=== PATIENT | female | born 1965 | race Hispanic/Latino ===

== ENCOUNTER 2022-04-11 01:46 | Emergency (ER) | payer BC ==
[2022-04-11 02:27] LABS: Urine Blood Negative (Negative); Urine Glucose Negative (Negative); Urine Protein 1+ (Negative); Urine Specific Gravity 1.025 (1.005-1.030); Urine pH 5.5 (5.0-7.0)
[2022-04-11] MEDS ORDERED: CYCLOBENZAPRINE 10 MG TAB ONE (02:32)
[2022-04-11] MEDS ORDERED: MORPHINE 4 MG/ML SYR ONE (02:32)
[2022-04-11] MEDS ORDERED: KETOROLAC 30 MG/ML INJ ONE (02:33)
[2022-04-11 02:57] LABS: Urine Mucus Slight /HPF (None Seen); Urine RBC <5 /HPF (None Seen)
[2022-04-11 03:19] LABS: Absolute Lymphocytes (CBC) 1.6 K/uL (0.7-4.9); Hematocrit 34.9 % (36.0-45.0); Lymphocytes % 18.2 % (15.3-44.8); MCV 73.3 fL (80-100); MPV 8.9 fL (7.6-11.3); RBC Red Blood Cell Count 4.75 M/uL (3.86-4.86)
[2022-04-11 03:35] LABS: Bilirubin Total 0.2 mg/dL (0.2-1.0); Potassium 3.7 mmol/L (3.5-5.1); Protein, Total 8.2 g/dL (6.4-8.2)
[2022-04-11] MEDS ORDERED: GABAPENTIN 300 MG CAP ONE (03:46)
[2022-04-11] MEDS ORDERED: dexAMETHasone 10 MG/ML VIAL ONE (03:46)
[2022-04-11] MEDS ORDERED: FENTANYL CITR 100 MCG/2 ML ONE (03:46)
--- NOTE | 2022-04-11 04:27 | EDPHYS ---
Physician Documentation [facility] Name: Heidy Benitez Age: 57 yrs Sex: Female : 1965 Arrival Date: 04/11/2022 Time: 01:53 Bed 4 Private MD: ED Physician Adi Ray HPI: 04/11 02:33 This 57 yrs old Female presents to ER via EMS with complaints of backpain, rt right side pain. 02:33 The patient presents with pain that is acute, with no known mechanism of injury. The rt symptoms are located in the low back. Onset: The symptoms/episode began/occurred 6 day(s) ago, and became worse. The pain radiates. Associated signs and symptoms: The patient has no apparent associated signs or symptoms. The problem was sustained when bending over. Modifying factors: The patient symptoms are alleviated by nothing, the patient symptoms are aggravated by any movement. Severity of symptoms: At their worst the symptoms were moderate. Presents to the ED with a right low back pain radiating to the right side, to the region, aching nature, not otherwise radiating. Is moderate severity, worse with movement, no alleviating factors. Denies bowel, bladder incontinence, denies saddle anesthesia.. Historical: - Allergies: 01:58 Benzoperoxide; jb4 - Home Meds: 01:58 fenofibrate oral [Active]; losartan oral [Active]; jb4 - PMHx: 01:58 HTN; High Cholesterol; Hypothyroidism; jb4 - Immunization history:: Adult Immunizations up to date. - Social history:: Smoking status: Patient denies any tobacco usage or history of. Patient/guardian denies using alcohol, street drugs. - Family history:: not pertinent. ROS: 02:33 Constitutional: Negative for fever, chills, and weight loss, Eyes: Negative for injury, rt pain, redness, and discharge, ENT: Negative for injury, pain, and discharge, Neck: Negative for injury, pain, and swelling, Cardiovascular: Negative for chest pain, palpitations, and edema, Respiratory: Negative for shortness of breath, cough, wheezing, and pleuritic chest pain, Abdomen/GI: Negative for abdominal pain, nausea, vomiting, diarrhea, and constipation, MS/Extremity: Negative for injury and deformity, Skin: Negative for injury, rash, and discoloration, Neuro: Negative for headache, weakness, numbness, tingling, and seizure, Psych: Negative for depression, anxiety, suicide ideation, homicidal ideation, and hallucinations. 02:33 Back: Positive for pain at rest, pain with movement. Exam: 02:33 Constitutional: This is a well developed, well nourished patient who is awake, alert, rt and in no acute distress. Head/Face: Normocephalic, atraumatic. Eyes: Pupils equal round and reactive to light, extra-ocular motions intact. Lids and lashes normal. Conjunctiva and sclera are non-icteric and not injected. Cornea within normal limits. Periorbital areas with no swelling, redness, or edema. ENT: Nares patent. No nasal discharge, no septal abnormalities noted. Tympanic membranes are normal and external auditory canals are clear. Oropharynx with no redness, swelling, or masses, exudates, or evidence of obstruction, uvula midline. Mucous membranes moist. Neck: Trachea midline, no thyromegaly or masses palpated, and no cervical lymphadenopathy. Supple, full range of motion without nuchal rigidity, or vertebral point tenderness. No Meningismus. Chest/axilla: Normal chest wall appearance and motion. Nontender with no deformity. No lesions are appreciated. Cardiovascular: Regular rate and rhythm with a normal S1 and S2. No gallops, murmurs, or rubs. Normal PMI, no JVD. No pulse deficits. Respiratory: Lungs have equal breath sounds bilaterally, clear to auscultation and percussion. No rales, rhonchi or wheezes noted. No increased work of breathing, no retractions or nasal flaring. Abdomen/GI: Soft, non-tender, with normal bowel sounds. No distension or tympany. No guarding or rebound. No evidence of tenderness throughout. Skin: Warm, dry with normal turgor. Normal color with no rashes, no lesions, and no evidence of cellulitis. MS/ Extremity: Pulses equal, no cyanosis. Neurovascular intact. Full, normal range of motion. Psych: Awake, alert, with orientation to person, place and time. Behavior, mood, and affect are within normal limits. 02:33 Back: Paraspinal to side tenderness, no midline tenderness, no step-offs. 02:33 Neuro: Strength and sensation intact in bilateral lower extremities. Vital Signs: 01:55 BP 158 / 89; Pulse 83; Resp 16; Pulse Ox 100% on R/A; Weight 62.14 kg (R); Height 5 ft. jb4 1 in. (154.94 cm) (R); Pain 10/10; 03:30 BP 171 / 89; Pulse 94; Resp 16; Temp 98.1(TE); Pulse Ox 94% on R/A; jb4 04:00 BP 141 / 82; Pulse 88; Resp 16; Pulse Ox 98% on R/A; jb4 01:55 Body Mass Index 25.89 (62.14 kg, 154.94 cm) jb4 MDM: 02:02 Patient medically screened. rt 04:55 Differential diagnosis: Pyelonephritis ruptured disc, Ureterolithiasis. Data reviewed: rt vital signs, nurses notes, lab test result(s), EKG, radiologic studies. ED course: Patient presents to the ED with a low back pain radiating to the hip. CT scan is negative for ureterolithiasis, appendicitis. Very low suspicion for septic arthritis. There is no bowel, bladder incontinence or saddle anesthesia to suggest a spinal epidural abscess, cauda equina syndrome. Labs are benign. Symptoms are improved with treatment in the ED, patient stable for outpatient care, return precautions discussed.. 04/11 02:03 Order name: CBC with Diff; Complete Time: 03:41 rt 04/11 02:03 Order name: CMP; Complete Time: 03:41 rt 04/11 02:03 Order name: CT Abd/Pelvis - Without Contrast rt 04/11 02:03 Order name: UA MICROSCOPIC; Complete Time: 03:15 rt 04/11 02:27 Order name: Urine Dipstick-Ancillary; Complete Time: 03:15 EDMS 04/11 02:03 Order name: Urine Dipstick-Ancillary (obtain specimen); Complete Time: 02:27 rt Administered Medications: 02:49 Not Given (Other Intervention Used): Zofran (Ondansetron) 2 mg IVP once; over 2 minutes [facility] 02:50 Drug: Ketorolac 30 mg Route: IVP; Site: right antecubital; 4 03:44 Follow up: Response: No adverse reaction; No change in condition; Pain is unchanged, 4 physician notified 02:50 Drug: morphine 4 mg Route: IVP; Infused Over: 4 mins; Site: right antecubital; jb4 03:44 Follow up: Response: No adverse reaction; No change in condition; Pain is unchanged, jb4 physician notified 02:50 Drug: Flexeril (cyclobenzaprine) 10 mg Route: PO; jb4 03:45 Follow up: Response: No adverse reaction; No change in condition; Pain is unchanged, jb4 physician notified 02:50 Drug: Zofran (Ondansetron) 4 mg Route: IVP; Site: right antecubital; jb4 03:45 Follow up: Response: No adverse reaction jb4 03:52 Drug: Gabapentin 300 mg Route: PO; jb4 03:52 Drug: fentaNYL (PF) 100 mcg Route: IVP; Site: right antecubital; jb4 03:53 Drug: Decadron - Dexamethasone 10 mg Route: IVP; Site: right antecubital; jb4 Disposition Summary: 04/11/22 04:26 Discharge Ordered Location: Home rt Problem: an ongoing problem rt Symptoms: have improved rt Condition: Stable rt Diagnosis - Low back pain rt Followup: rt - With: Private Physician - When: 2 - 3 days - Reason: Discharge Instructions: - Discharge Summary Sheet rt - Acute Back Pain, Adult rt Forms: - Work release form jb4 - Medication Reconciliation Form rt - Thank You Letter rt - Antibiotic Education rt - Prescription Opioid Use rt Prescriptions: - GABAPENTIN 100 mg tab - take 1 tablet by ORAL route every 8 hours; 30 tablet; Refills: 0, Product rt Selection Permitted - Cyclobenzaprine 10 mg Oral Tablet - take 1 tablet by ORAL route every 8 hours As needed; 15 tablet; Refills: 0, rt Product Selection Permitted - Tylenol-Codeine #3 300 mg-30 mg Oral - take 1 tablet by ORAL route every 6 hours; 18 tablet; Refills: 0, Product rt Selection Permitted Signatures: Dispatcher [employer] Robin Porter RN RN jb4 Adi Ray MD MD rt
--- NOTE | 2022-04-11 04:27 | ER ---
Nurse's Notes [facility] Name: Heidy Benitez Age: 57 yrs Sex: Female : 1965 Arrival Date: 04/11/2022 Time: 01:53 Bed 4 Private MD: Diagnosis: Low back pain Presentation: 04/11 01:55 Chief complaint: EMS states: Pt reports right sciatic nerve pain since Monday. Has jb4 taking motrin and it has not helped. Coronavirus screen: At this time, the client does not indicate any symptoms associated with coronavirus-19. Ebola Screen: No symptoms or risks identified at this time. Initial Sepsis Screen: Does the patient meet any 2 criteria? No. Patient's initial sepsis screen is negative. Does the patient have a suspected source of infection? No. Patient's initial sepsis screen is negative. Risk Assessment: Do you want to hurt yourself or someone else? Patient reports no desire to harm self or others. Onset of symptoms was April 05, 2022. Transition of care: patient was not received from another setting of care. 01:55 Method Of Arrival: EMS: [facility] jb4 01:55 Acuity: ABDON 4 jb4 Historical: - Allergies: 01:58 Benzoperoxide; jb4 - Home Meds: 01:58 fenofibrate oral [Active]; losartan oral [Active]; jb4 - PMHx: 01:58 HTN; High Cholesterol; Hypothyroidism; jb4 - Immunization history:: Adult Immunizations up to date. - Social history:: Smoking status: Patient denies any tobacco usage or history of. Patient/guardian denies using alcohol, street drugs. - Family history:: not pertinent. Screenin:02 Abuse screen: Denies injuries from another. Nutritional screening: No deficits noted. jb4 Tuberculosis screening: No symptoms or risk factors identified. Fall Risk None identified. Assessment: 02:02 General: Appears in no apparent distress. uncomfortable, Behavior is calm, cooperative, jb4 appropriate for age. Pain: Complains of pain in right leg Pain does not radiate. Pain currently is 10 out of 10 on a pain scale. Neuro: Level of Consciousness is awake, alert, obeys commands, Oriented to person, place, time, situation. Cardiovascular: Patient's skin is warm and dry. Respiratory: Airway is patent Respiratory effort is even, unlabored, Respiratory pattern is regular, symmetrical. GI: No signs and/or symptoms were reported involving the gastrointestinal system. : No signs and/or symptoms were reported regarding the genitourinary system. EENT: No signs and/or symptoms were reported regarding the EENT system. Derm: Skin is intact, Skin is pink, warm \T\ dry. Musculoskeletal: Circulation, motion, and sensation intact. Range of motion: intact in all extremities. 03:16 Reassessment: Patient appears in no apparent distress at this time. Patient and/or jb4 family updated on plan of care and expected duration. Pain level reassessed. Patient is alert, oriented x 3, equal unlabored respirations, skin warm/dry/pink. 04:39 Reassessment: Patient appears in no apparent distress at this time. Patient and/or jb4 family updated on plan of care and expected duration. Pain level reassessed. Patient is alert, oriented x 3, equal unlabored respirations, skin warm/dry/pink. Vital Signs: 01:55 BP 158 / 89; Pulse 83; Resp 16; Pulse Ox 100% on R/A; Weight 62.14 kg (R); Height 5 ft. jb4 1 in. (154.94 cm) (R); Pain 10/10; 03:30 BP 171 / 89; Pulse 94; Resp 16; Temp 98.1(TE); Pulse Ox 94% on R/A; jb4 04:00 BP 141 / 82; Pulse 88; Resp 16; Pulse Ox 98% on R/A; jb4 01:55 Body Mass Index 25.89 (62.14 kg, 154.94 cm) 4 ED Course: 01:53 Patient arrived in ED. jb4 01:53 Robin Singer, CARMELO is Primary Nurse. jb4 01:56 Adi Ray MD is Attending Physician. rt 01:58 Triage completed. jb4 01:58 Arm band placed on right wrist. jb4 02:02 Patient has correct armband on for positive identification. Bed in low position. Call [facility] light in reach. Side rails up X 1. Client placed on continuous cardiac and pulse oximetry monitoring. NIBP monitoring applied. 02:27 UA MICROSCOPIC Sent. rv1 02:42 CT Abd/Pelvis - Without Contrast In Process Unspecified. EDMS 04:40 No provider procedures requiring assistance completed. IV discontinued, intact, jb4 bleeding controlled, No redness/swelling at site. Pressure dressing applied. Administered Medications: 02:49 Not Given (Other Intervention Used): Zofran (Ondansetron) 2 mg IVP once; over 2 minutes jb4 02:50 Drug: Ketorolac 30 mg Route: IVP; Site: right antecubital; jb4 03:44 Follow up: Response: No adverse reaction; No change in condition; Pain is unchanged, jb4 physician notified 02:50 Drug: morphine 4 mg Route: IVP; Infused Over: 4 mins; Site: right antecubital; jb4 03:44 Follow up: Response: No adverse reaction; No change in condition; Pain is unchanged, jb4 physician notified 02:50 Drug: Flexeril (cyclobenzaprine) 10 mg Route: PO; jb4 03:45 Follow up: Response: No adverse reaction; No change in condition; Pain is unchanged, jb4 physician notified 02:50 Drug: Zofran (Ondansetron) 4 mg Route: IVP; Site: right antecubital; jb4 03:45 Follow up: Response: No adverse reaction jb4 03:52 Drug: Gabapentin 300 mg Route: PO; jb4 03:52 Drug: fentaNYL (PF) 100 mcg Route: IVP; Site: right antecubital; jb4 03:53 Drug: Decadron - Dexamethasone 10 mg Route: IVP; Site: right antecubital; jb4 Outcome: 04:26 Discharge ordered by MD. rt 04:40 Discharged to home via wheelchair, with family. jb4 04:40 Condition: stable 04:40 Discharge instructions given to patient, Instructed on discharge instructions, follow up and referral plans. no drinking with medication, no driving heavy equipment, medication usage, Demonstrated understanding of instructions, follow-up care, medications, Prescriptions given X 3. 04:40 Patient left the ED. jb4 Signatures: Dispatcher [employer] EDMS Robin Singer RN RN jb4 Adi Ray MD MD rt Soila Armstrong rv1 Corrections: (The following items were deleted from the chart) 04:00 03:30 BP 171 / 89; Pulse 94bpm; Resp 16bpm; Pulse Ox 94% RA; jb4 jb4
[2022-04-11 04:45] VITALS: TEMP 98.1
[2022-04-11 04:47] VITALS: BP 141/82; O2SAT 98
--- NOTE | 2022-04-11 11:21 | RAD REPORT ---
EXAM DESCRIPTION: CT Abdomen and Pelvis Without Intravenous Contrast CLINICAL HISTORY: The patient is 57 years old and is Female; flank pain TECHNIQUE: Axial computed tomography images of the abdomen and pelvis without intravenous contrast. Sagittal and coronal reformatted images were created and reviewed. This CT exam was performed usi ng one or more of the following dose reduction techniques: automated exposure control, adjustment o f the mA and/or kV according to patient size, and/or use of iterative reconstruction technique. COMPARISON: No relevant prior studies available. FINDINGS: LUNG BASES: Unremarkable. No mass. No consolidation. ABDOMEN: LIVER: Unremarkable. GALLBLADDER AND BILE DUCTS: Unremarkable. No calcified stones. No ductal dilation. PANCREAS: Unremarkable. No ductal dilation. SPLEEN: Unremarkable. No splenomegaly. ADRENALS: Unremarkable. No mass. KIDNEYS AND URETERS: Unremarkable. No obstructing stones. No hydronephrosis. STOMACH AND BOWEL: Unremarkable. No obstruction. No mucosal thickening. PELVIS: APPENDIX: No findings to suggest acute appendicitis. BLADDER: Unremarkable. No stones. REPRODUCTIVE: Unremarkable as visualized. ABDOMEN and PELVIS: INTRAPERITONEAL SPACE: Unremarkable. No free air. No significant fluid collection. BONES/JOINTS: No acute fracture. No dislocation. SOFT TISSUES: Unremarkable. VASCULATURE: Mild calcified atherosclerosis of the abdominal aorta without aneurysmal dilatation. LYMPH NODES: Unremarkable. No enlarged lymph nodes. IMPRESSION: No acute findings in the abdomen or pelvis. Specifically, no hydronephrosis or obstructi ve stones identified in either collecting system. Electronically signed by: Atilio Bae MD 04/11/2022 3:40 AM LAUNDRY MACHINE OPERATOR Due to temporary technical issues with the PACS/Fluency reporting system, reports are being signed by the in house radiologists without review as a courtesy to insure prompt reporting. The interpreting radiologist is fully responsible for the content of the report.
== END 2022-04-11 04:40 | disposition home or self-care (01) ==
LOC: ER 01:46
DX: M54.50 Low back pain, unspecified (principal); I10 Essential (primary) hypertension; Z88.8 Allergy status to other drugs, medicaments and biological substances
CPT/HCPCS: 85025; 36415; 80053; 74176; J3010; J1100; 81003; 81015; 96374; 96375; 99284